=== PATIENT | male | born 1990 | race Caucasian/White ===

== ENCOUNTER 2018-10-20 06:28 | Emergency (ER) | payer BC, OTHER ==
--- NOTE | 2018-10-20 07:26 | EDM.PDOC ---
ED HPI GENERAL MEDICAL PROBLEM - General Chief Complaint: Genitourinary Problem Stated Complaint: KIDNEY STONE PAIN Time Seen by Provider: 10/20/18 06:57 Source of Information: Reports: Patient History Limitations: Reports: No Limitations - History of Present Illness INITIAL COMMENTS - FREE TEXT/NARRATIVE: The patient presents with right flank and right lower abdominal pain. This is an an ongoing problems since 2 weeks before . He had pain and hematuria. [facility] and [facility] gave him some antiinflammatories for treatment of a suspected kidney stone. He does have a history of kidney stones. He never got an US or a CT. He does not have the hematuria any more but just the pain. He has no fever, chills, nausea, vomiting, or diarrhea. This morning he had some pain down his right leg. He took some aspirin and that went away. He denies chest pain, shortness of breath or a cough. He has chronic back pain. Onset: Gradual Duration: Week(s): (Since 2 weeks before ) Location: Reports: Abdomen, Back Quality: Reports: Sharp Severity: Moderate Improves with: Reports: None Worsens with: Reports: None Associated Symptoms: Reports: No Other Symptoms Right Lower Abdominal Pain Score (Numeric/FACES): 8 - Related Data Allergies Allergy/AdvReac Type Severity Reaction Status Date / Time pravastatin Allergy Rash Verified 10/20/18 06:36 Home Meds: Home Meds Ibuprofen 200 mg PO DAILY PRN 01/26/14 [History] Meloxicam 15 mg PO DAILY PRN 10/20/18 [History] Past Medical History - Past Health History Medical/Surgical History: Denies Medical/Surgical History Genitourinary History: Reports: Renal Calculus Musculoskeletal History: Reports: Back Pain, Chronic Social & Family History - Tobacco Use Smoking Status *Q: Never Smoker - Recreational Drug Use Recreational Drug Use: No ED ROS GENERAL - Review of Systems Review Of Systems: See Below Constitutional: Reports: No Symptoms HEENT: Reports: No Symptoms Respiratory: Reports: No Symptoms Cardiovascular: Reports: No Symptoms Endocrine: Reports: No Symptoms GI/Abdominal: Reports: Abdominal Pain. Denies: Diarrhea, Nausea, Vomiting : Reports: Flank Pain (Right), Hematuria ED EXAM, RENAL/ - Physical Exam Exam: See Below Exam Limited By: No Limitations General Appearance: Alert, No Apparent Distress Ears: Normal External Exam Nose: Normal Inspection Head: Atraumatic, Normocephalic Neck: Normal Inspection Respiratory/Chest: No Respiratory Distress, Lungs Clear, Normal Breath Sounds Cardiovascular: Regular Rate, Rhythm, No Edema, No Murmur GI/Abdominal: Soft, No Organomegaly, No Mass, Tender (Mild tenderness to the right lower abdomen) Course - Vital Signs Last Recorded V/S: Last Vital Signs Temp 98 F 10/20/18 06:34 Pulse 95 10/20/18 06:34 Resp 16 10/20/18 06:34 BP 132/85 10/20/18 06:34 Pulse Ox 98 10/20/18 06:34 - Orders/Labs/Meds Labs: Laboratory Tests 10/20/18 10/20/18 10/20/18 Range/Units 06:45 07:18 07:18 WBC 8.83 (4.23-9.07) K/mm3 RBC 4.91 (4.63-6.08) M/mm3 Hgb 14.5 (13.7-17.5) gm/L Hct 42.4 (40.1-51.0) % MCV 86.4 (79.0-92.2) fl MCH 29.5 (25.7-32.2) pg MCHC 34.2 (32.2-35.5) g/dl RDW Std Deviation 40.2 (35.1-43.9) fL Plt Count 238 (163-337) K/mm3 MPV 10.0 (9.4-12.3) fl Neut % (Auto) 69.3 H (34.0-67.9) % Lymph % (Auto) 24.7 (21.8-53.1) % [place] % (Auto) 4.9 L (5.3-12.2) % Eos % (Auto) 0.6 L (0.8-7.0) Baso % (Auto) 0.2 (0.1-1.2) % Neut # (Auto) 6.12 H (1.78-5.38) K/mm3 Lymph # (Auto) 2.18 (1.32-3.57) K/mm3 [place] # (Auto) 0.43 (0.30-0.82) K/mm3 Eos # (Auto) 0.05 (0.04-0.54) K/mm3 Baso # (Auto) 0.02 (0.01-0.08) K/mm3 Sodium 139 (136-145) mEq/L Potassium 3.8 (3.5-5.1) mEq/L Chloride 105 (98-107) mEq/L Carbon Dioxide 26 (21-32) mEq/L Anion Gap 11.8 (5-15) BUN 15 (7-18) mg/dL Creatinine 1.1 (0.7-1.3) mg/dL Est Cr Clr Drug Dosing 95.00 mL/min Estimated GFR (MDRD) > 60 (>60) mL/min BUN/Creatinine Ratio 13.6 L (14-18) Glucose 92 (74-106) mg/dL Calcium 8.3 L (8.5-10.1) mg/dL Total Bilirubin 0.6 (0.2-1.0) mg/dL AST 15 (15-37) U/L ALT 26 (16-63) U/L Alkaline Phosphatase 58 (46-116) U/L Total Protein 6.9 (6.4-8.2) g/dl Albumin 3.6 (3.4-5.0) g/dl Globulin 3.3 gm/dL Albumin/Globulin Ratio 1.1 (1-2) Lipase 358 (73-393) U/L Urine Color Yellow (Yellow) Urine Appearance Clear (Clear) Urine pH 6.0 (5.0-8.0) Ur Specific [place] 1.020 (1.005-1.030) Urine Protein Negative (Negative) Urine Glucose (UA) Negative (Negative) Urine Ketones Negative (Negative) Urine Occult Blood Negative (Negative) Urine Nitrite Negative (Negative) Urine Bilirubin Negative (Negative) Urine Urobilinogen 0.2 (0.2-1.0) Ur Leukocyte Esterase Negative (Negative) Urine RBC 0-5 (0-5) /hpf Urine WBC 0-5 (0-5) /hpf Ur Epithelial Cells 0-5 (0-5) /hpf Urine Bacteria Few (FEW) /hpf Urine Mucus Few (FEW) /hpf - Re-Assessments/Exams Free Text/Narrative Re-Assessment/Exam: 10/20/18 07:47 I ordered labs, UA and a CT of his abdomen and pelvis without contrast. 10/20/18 08:16 His CBC and CMP look good. His UA shows no UTI and no blood. His CT shows no renal calculi, ureteral dilatation or ureteral stone is seen. Nothing acute is identified on noncontrast CT study of the abdomen and pelvis. He still has some pain but at this time I am not sure what is the cause. He has issues with his back and he is disabled from that. I will have him follow up with [facility]. Departure - Departure Time of Disposition: 08:18 Disposition: Home, Self-Care 01 Condition: Good Clinical Impression: Right low back pain Qualifiers: Chronicity: acute Sciatica presence: without sciatica Qualified Code(s): M54.5 - Low back pain Abdominal pain Qualifiers: Abdominal location: right lower quadrant Qualified Code(s): R10.31 - Right lower quadrant pain - Discharge Information *PRESCRIPTION DRUG MONITORING PROGRAM REVIEWED*: Not Applicable *COPY OF PRESCRIPTION DRUG MONITORING REPORT IN PATIENT CAROLE: Not Applicable Referrals: Cindy Meza MD [Primary Care Provider] - 1 Week Forms: ED Department Discharge Additional Instructions: Take tylenol or motrin for pain. Follow up with your doctor in 1 week. Please return if you are worse.
--- NOTE | 2018-10-20 07:57 | CT ---
CT abdomen and pelvis Technique: Multiple axial sections were obtained from the top of the liver inferiorly through the pubic symphysis. Intravenous and oral contrast was not utilized. Study has been performed as a ureteral stone protocol. Comparison: No prior abdominal imaging. Findings: Kidneys show no abnormal calcifications. No ureteral dilatation or ureteral stone is seen. Visualized lung bases shows slight linear scarring or discoid atelectasis within both lung bases. Noncontrast appearance of the liver appears within normal limits. Gallbladder contains no calcified gallstones. Spleen appears within normal limits. Adrenal glands show no nodule. Pancreas is within normal limits. Aorta shows no aneurysm. No retroperitoneal adenopathy or mesenteric abnormalities are seen. No pelvic mass or adenopathy is seen. No free fluid or inflammatory change is seen. No bowel dilatation is seen. Appendix is seen and appears to be normal in size. Bone window settings were reviewed which appears within normal limits. Very small fat-containing umbilical hernia is noted. Impression: 1. No renal calculi, ureteral dilatation or ureteral stone is seen. 2. Other incidental findings. Nothing acute is identified on noncontrast CT study of the abdomen and pelvis performed as a ureteral stone protocol. Diagnostic code #1
== END 2018-10-20 08:25 | disposition home or self-care (01) ==
LOC: JD.ED 06:28
DX: R10.31 Right lower quadrant pain (principal); M54.5 Low back pain; Z88.8 Allergy status to other drugs, medicaments and biological substances
CPT/HCPCS: 36415; 74176; 74176-26; 80053; 81001; 83690; 85025; 99282; 99284-25

== ENCOUNTER 2019-01-09 00:18 | Emergency (ER) | payer OTHER ==
[2019-01-09] MEDS ORDERED: Dicyclomine 10 MG Cap PO ONE (00:37)
[2019-01-09] MEDS ORDERED: Alum Hydrox/Mag Hydrox/Simeth 30 ML, Lidocaine 2% 15 ML PO ONE ×2 (00:38)
--- NOTE | 2019-01-09 00:39 | EDM.PDOC ---
ED HPI GENERAL MEDICAL PROBLEM - General Chief Complaint: Gastrointestinal Problem Stated Complaint: HEARTBURN/GAS/LEFT SIDE NECK PAIN Time Seen by Provider: 01/09/19 00:37 Source of Information: Reports: Patient History Limitations: Reports: No Limitations - History of Present Illness INITIAL COMMENTS - FREE TEXT/NARRATIVE: 28-year-old male presents the ED with diffuse central chest discomfort and persistent burping and belching. Patient by history has a strong history of GERD with occasional waking up in the night with brash water acid in his mouth. He states he's been burping and belching with pressure in his central chest for the best part of the last 2-3 hours. But he's been having extra gas and pressure in his chest for the last month. He did attend the [place] [facility] and they suggested Gas-X and suggest a stool culture and other tests be done. No vomiting. No recent soda pop usage. History suggests he likely has a hiatal hernia. Onset: Today, Unknown/Unsure (Symptoms for the last month.) Duration: Chronic, Getting Worse, Intermittent, Waxing/Waning Location: Reports: Chest (Epigastric central chest pain with persistent eructation.) Quality: Reports: Ache, Burning, Pressure (The only way he can get rid of the pressure is to burp.) Severity: Moderate Improves with: Reports: None Worsens with: Reports: None Context: Denies: Activity, Exercise, Lifting, Sick Contact, Trauma, Other Associated Symptoms: Reports: Chest Pain. 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: Other (see below) (Gas-X.) Left Neck Pain Score (Numeric/FACES): 4 - Related Data Allergies Allergy/AdvReac Type Severity Reaction Status Date / Time pravastatin Allergy Rash Verified 10/20/18 06:36 Home Meds: Home Meds Ibuprofen 200 mg PO DAILY PRN 01/26/14 [History] Meloxicam 15 mg PO DAILY PRN 10/20/18 [History] Dicyclomine [Bentyl] 20 mg PO Q6H PRN #10 tablet 01/09/19 [Rx] Past Medical History - Past Health History Medical/Surgical History: Denies Medical/Surgical History Gastrointestinal History: Reports: Gastritis, GERD, Other (See Below) (History suggest chronic hiatal hernia with occasional brash water acid reflux into his mouth and throat during the night.) Genitourinary History: Reports: Renal Calculus Musculoskeletal History: Reports: Back Pain, Chronic Social & Family History - Living Situation & Occupation Living situation: Reports: Occupation: Unemployed ED ROS GENERAL - Review of Systems Review Of Systems: See Below Constitutional: Reports: Decreased Appetite. Denies: Fever, Chills, Malaise, Weakness, Fatigue, Weight Loss HEENT: Reports: No Symptoms Respiratory: Reports: No Symptoms Cardiovascular: Reports: No Symptoms Endocrine: Reports: No Symptoms GI/Abdominal: Reports: Abdominal Pain (Epigastric pressure discomfort), Other ( Persistent problems with GERD and excessive burping and belching.) : Reports: No Symptoms Musculoskeletal: Reports: Back Pain Skin: Reports: No Symptoms Neurological: Reports: No Symptoms Psychiatric: Reports: No Symptoms Hematologic/Lymphatic: Reports: No Symptoms Immunologic: Reports: No Symptoms ED EXAM, GI/ABD - Physical Exam Exam: See Below Exam Limited By: No Limitations General Appearance: Alert, WD/WN, Moderate Distress (Persistent burping and belching to relieve venous pressure discomfort in his central chest and pressure in the left lateral aspect of his throat.) Eyes: Bilateral: Normal Appearance (No scleral icterus) Nose: Normal Inspection Throat/Mouth: Normal Inspection, Normal Lips, Normal Oropharynx Head: Atraumatic, Normocephalic Neck: Normal Inspection, Supple, Non-Tender, Full Range of Motion. No: Carotid Bruit, Lymphadenopathy (L), Lymphadenopathy (R) Respiratory/Chest: No Respiratory Distress, Lungs Clear, Normal Breath Sounds, No Accessory Muscle Use, Chest Non-Tender Cardiovascular: Normal Peripheral Pulses, Regular Rate, Rhythm, No Edema, No Gallop, No Murmur, No Rub GI/Abdominal Exam: Normal Bowel Sounds, Soft, No Organomegaly, No Distention, No Abnormal Bruit, No Mass, Pelvis Stable, Tender (Mild tenderness in the epigastrium only.), Other (Negative Delcid sign) (Male) Exam: No Hernia Back Exam: Normal Inspection, Full Range of Motion. No: CVA Tenderness (L), CVA Tenderness (R) Extremities: Normal Inspection, Normal Range of Motion, Non-Tender, No Pedal Edema Neurological: Alert, Oriented, CN II-XII Intact, Normal Cognition Psychiatric: Anxious Skin Exam: Warm, Dry, Intact, Normal Color, No Rash Course - Vital Signs Last Recorded V/S: Last Vital Signs Temp 36.0 C 01/09/19 00:28 Pulse 94 01/09/19 00:28 Resp 18 01/09/19 00:28 BP 128/87 01/09/19 00:28 Pulse Ox 98 01/09/19 00:28 - Orders/Labs/Meds Orders: Active Orders 24 hr Category Date Time Status Chest 2V [CR] Stat Exams 01/09/19 00:38 Taken Meds: Medications Discontinued Medications Generic Name Dose Route Start Last Admin Trade Name Freq PRN Reason Stop Dose Admin Al Hydroxide/Mg Hydroxide 30 0 ml 01/09/19 00:38 01/09/19 00:42 ml/ Lidocaine HCl 15 ml PO 01/09/19 00:39 45 ml ONETIME ONE Administration Dicyclomine HCl 20 mg 01/09/19 00:37 01/09/19 00:42 Bentyl PO 01/09/19 00:38 20 mg ONETIME ONE Administration - Radiology Interpretation Free Text/Narrative:: 28-year-old male presents the ED with central chest pressure discomfort and recurrent burping and belching to relieve the pressure. Pain radiates up to the left lateral aspect of his throat and neck. By history has a strong history of GERD and occasional brash water reflux into his mouth and throat during the night. This used to be more common when he was younger but still occurs intermittently. He does use Zantac when necessary and Prilosec when necessary. Today the pain worsened and his central chest and left lateral neck and he can' t get any relief from the constant need to burp and belch. Plan two-view chest x -ray to be done to see if I can identify a hiatal hernia. He did have a CT scan done within the last few months and I will look at this to see if I can identify a hiatal hernia as well. In the meantime I will give him a GI cocktail and Bentyl 20 mg by mouth. - Re-Assessments/Exams Free Text/Narrative Re-Assessment/Exam: 01/09/19 01;50: Patient feels much improved with no pressure discomfort now. The GI cocktail seemed to help the most. He will no longer feels any pain in his left lateral neck or the feeling of need to continue to burp or belch. Two- view chest x-ray was inconclusive in terms of identifying a hiatal hernia. The chest x-ray was otherwise normal. I did review CT scan I believe done in October of this year and it did show a small hiatal hernia. Patient advised that he should pursue investigations for hiatal hernia repair and at least an EGD. He is to take Prilosec 20 mg every day at bedtime. I will write him a prescription for Bentyl tablets to be taken 20 mg every 6 hours. For similar type discomfort. Departure - Departure Time of Disposition: 01:54 Disposition: Home, Self-Care 01 Condition: Fair Clinical Impression: Gastroesophageal reflux disease with hiatal hernia - Discharge Information *PRESCRIPTION DRUG MONITORING PROGRAM REVIEWED*: Not Applicable *COPY OF PRESCRIPTION DRUG MONITORING REPORT IN PATIENT CAROLE: Not Applicable Prescriptions: Dicyclomine [Bentyl] 20 mg PO Q6H PRN #10 tablet PRN Reason: Abdominal cramps/diarrhea Instructions: Gastroesophageal Reflux Disease, Adult, [id number], Laparoscopic Kimber Fundoplication Referrals: Cindy Meza MD [Primary Care Provider] - Forms: ED Department Discharge Additional Instructions: Evaluation in the emergency room tonight in regards to the development of epigastric pressure discomfort and upper chest pressure discomfort even up into the throat particularly on the left side. Unable to stop burping and or belching. By history you have a hiatal hernia with gastroesophageal reflux disease chronically. As you mentioned you have awoken in the night with brash water acid in your mouth but not for a period of time. The history suggests that your lower esophagus is inflamed from reflux probably during the night while you are sleeping. The history suggests that you have a hiatal hernia which means that the valve at the lower end of the food pipe and stomach juncture is open most of the time rather than being closed. This allows free acid and reflux up into the food pipe and sometimes up into the mouth and throat during the night. Hiatal hernia which means stomach herniates up into the chest stretches the opening where the food pipe travels through to the stomach and causes pain to radiate up into the neck and throat area which is what you've experienced tonight. A small hiatal hernia was visible on previous CT scan done for suspect kidney stones a short time ago. It is my suggestion that you take Prilosec 20 mg every night at bedtime. In the ED were treated with a GI cocktail which seemed to relieve your discomfort substantially and you were given a dose of Bentyl 20 mg by mouth as well. I will send you home with a prescription for Bentyl 20 mg tablet to be taken every 6 hours as needed for similar type pain. I would suggest strongly that you follow-up with a surgeon who specializes in fundoplication which means repair of reflux disorders and hiatal hernia repair. Her primary care physician could arrange this as are several surgeons in [place] who could perform this procedure. Suggest avoiding all soda pop in the future. Try not to eat or have much in your stomach for at least 3 hours before going to bed. All I'll also opens up the lower esophageal valve. So can medication such as Benadryl sleep aids etc. - My Orders Last 24 Hours: My Active Orders 01/09/19 00:38 Chest 2V [CR] Stat - Assessment/Plan Last 24 Hours: My Active Orders 01/09/19 00:38 Chest 2V [CR] Stat
--- NOTE | 2019-01-09 09:15 | CR ---
Chest: Two views of the chest were obtained. Comparison: Prior chest x-ray of 01/26/14. Heart size and mediastinum are within normal limits. Lungs are clear. Bony structures are unremarkable. Impression: 1. Nothing acute is appreciated on two-view chest x-ray. Diagnostic code #1
== END 2019-01-09 02:05 | disposition home or self-care (01) ==
LOC: JD.ED 00:18
DX: K21.9 Gastro-esophageal reflux disease without esophagitis (principal); K44.9 Diaphragmatic hernia without obstruction or gangrene
CPT/HCPCS: 71046; 99283; A9270; 99284

== ENCOUNTER 2019-04-22 05:22 | Emergency (ER) | payer OTHER ==
[2019-04-22] MEDS ORDERED: HYDROmorphone 0.5 MG/0.5 ML Syringe IVPUSH ONE (05:59)
[2019-04-22] MEDS ORDERED: Metoclopramide 10 MG/2 ML SDV IVPUSH ONE (05:59)
[2019-04-22] MEDS ORDERED: Hyoscyamine 0.125 MG Tab.SL SL ONE (05:59)
[2019-04-22] MEDS ORDERED: Sodium Chloride 0.9% 1,000 ML IV SCH (06:00)
--- NOTE | 2019-04-22 06:04 | EDM.PDOC ---
ED HPI GENERAL MEDICAL PROBLEM - General Chief Complaint: Abdominal Pain Stated Complaint: gall bladder Time Seen by Provider: 04/22/19 05:45 Source of Information: Reports: Patient History Limitations: Reports: No Limitations - History of Present Illness INITIAL COMMENTS - FREE TEXT/NARRATIVE: 29-year-old male attends the ED having awoken from sleep with pain in his epigastrium along the right costal margin her at least up underneath the right ribs radiating through to his back mostly between his shoulder blades perhaps more so on the left side than the right. He then is having brash water reflux and burping/belching to try and get relief of the discomfort. He had an ultrasound on his gallbladder yesterday at [facility] and was reported negative for stone disease. He suggest more of a hiatal hernia with free gastroesophageal reflux occurring often during the night. I had seen him about 3 weeks ago with pain referred up into his neck suggestive of esophageal spasm. He had a EGD performed in mid February which showed inflammation of the lower esophagus and he was started on Prilosec 20 mg daily. He also has found that if he takes Zantac 150 milligrams when he 7 problems it seems to work better and faster. The patient is spitting up saliva and dry heaving at the time my examination. Onset: Today Onset Date: 04/22/19 Onset Time: 04:30 Duration: Hour(s):, Constant, Waxing/Waning Location: Reports: Chest, Abdomen (Epigastrium and lower retrosternal chest.), Radiates to (A radiates through to his intrascapular area perhaps a little more to the left side than the right.) Quality: Reports: Ache, Other (Deep aching pressure pain. Relieved by burping and belching) Severity: Moderate (7 or 8 out of 10) Improves with: Reports: Other (Relieved by burping belching.) Worsens with: Reports: Other Context: Reports: Other (Spontaneous occurrence well asleep.). Denies: Activity (Worse when he lies down.), Exercise, Lifting, Sick Contact, Trauma Associated Symptoms: Reports: Chest Pain, Cough (Retrosternal chest pressure discomfort), Loss of Appetite, Malaise, Nausea/Vomiting (Dry heaving). Denies: Confusion, cough w sputum, Diaphoresis (Coughing at times as he is refluxing), Fever/Chills, Headaches, Rash, Seizure, Shortness of Breath, Syncope Treatments MMD [employer]: Reports: Other (see below) (None.) Right Upper Abdominal Pain Score (Numeric/FACES): 1 - Related Data Allergies Allergy/AdvReac Type Severity Reaction Status Date / Time pravastatin Allergy Rash Verified 10/20/18 06:36 Home Meds: Home Meds Ibuprofen 200 mg PO DAILY PRN 01/26/14 [History] Meloxicam 15 mg PO DAILY PRN 10/20/18 [History] Dicyclomine [Bentyl] 20 mg PO Q6H PRN #10 tablet 01/09/19 [Rx] Hyoscyamine Sulfate [Levsin-Sl] 0.125 mg SL ASDIRECTED PRN #10 tab.subl [Rx] Past Medical History - Past Health History Medical/Surgical History: Denies Medical/Surgical History Gastrointestinal History: Reports: Gastritis, GERD, Other (See Below) Genitourinary History: Reports: Renal Calculus Musculoskeletal History: Reports: Back Pain, Chronic Social & Family History - Family History Family Medical History: Noncontributory - Tobacco Use Smoking Status *Q: Never Smoker - Caffeine Use Caffeine Use: Reports: None - Recreational Drug Use Recreational Drug Use: No - Living Situation & Occupation Living situation: Reports: Occupation: Unemployed ED ROS GENERAL - Review of Systems Review Of Systems: See Below Constitutional: Reports: Decreased Appetite. Denies: Fever, Chills, Malaise, Weakness, Fatigue, Weight Loss HEENT: Reports: No Symptoms Respiratory: Reports: No Symptoms Cardiovascular: Reports: No Symptoms Endocrine: Reports: No Symptoms GI/Abdominal: Reports: Abdominal Pain (Epigastric and along the right costal margin.), Decreased Appetite, Other (Constant feeling of need to burp and belch. ) : Reports: No Symptoms Musculoskeletal: Reports: No Symptoms Skin: Reports: No Symptoms Neurological: Reports: No Symptoms Psychiatric: Reports: No Symptoms Hematologic/Lymphatic: Reports: No Symptoms Immunologic: Reports: No Symptoms ED EXAM, GI/ABD - Physical Exam Exam: See Below Exam Limited By: No Limitations General Appearance: Alert, Moderate Distress (Dry heaving burping and belching try to get relief of the epigastric right upper quadrant dull pain.) Eyes: Bilateral: Normal Appearance (No scleral icterus.) Throat/Mouth: Normal Inspection, Normal Lips, Normal Oropharynx Head: Atraumatic, Normocephalic Neck: Normal Inspection, Supple, Non-Tender, Full Range of Motion. No: Lymphadenopathy (L), Lymphadenopathy (R) Respiratory/Chest: Lungs Clear, Normal Breath Sounds, No Accessory Muscle Use, Respiratory Distress (Mild tachypnea.) Cardiovascular: Normal Peripheral Pulses, Regular Rate, Rhythm, No Edema, No Gallop, No Murmur, No Rub GI/Abdominal Exam: Normal Bowel Sounds, Soft, Non-Tender, No Organomegaly, No Abnormal Bruit, No Mass, Pelvis Stable, Other (Negative Delcid sign) (Male) Exam: No Hernia Back Exam: Normal Inspection, Full Range of Motion. No: CVA Tenderness (L), CVA Tenderness (R) Extremities: Normal Inspection, Normal Range of Motion, Non-Tender, No Pedal Edema Neurological: Alert, Oriented, CN II-XII Intact, Normal Cognition Psychiatric: Normal Affect, Anxious Skin Exam: Warm, Dry, Intact, Normal Color, No Rash Course - Vital Signs Last Recorded V/S: Last Vital Signs Temp 36.1 C 04/22/19 05:42 Pulse 89 04/22/19 05:42 Resp 16 04/22/19 05:42 BP 127/98 H 04/22/19 05:42 Pulse Ox 98 04/22/19 05:42 - Orders/Labs/Meds Orders: Active Orders 24 hr Category Date Time Status Abdomen wo Cont [CT] Stat Exams 04/22/19 06:00 Taken Sodium Chloride 0.9% [Normal Saline] 1,000 ml Med 04/22/19 06:00 Active IV ASDIRECTED Medication Orders Sodium Chloride (Normal Saline) 1,000 mls @ 150 mls/hr IV ASDIRECTED JOSE Last Admin: 04/22/19 06:13 Dose: 150 mls/hr Labs: Laboratory Tests 04/22/19 04/22/19 Range/Units 06:04 06:04 WBC 8.72 (4.23-9.07) K/mm3 RBC 5.42 (4.63-6.08) M/mm3 Hgb 16.0 D (13.7-17.5) gm/L Hct 46.4 (40.1-51.0) % MCV 85.6 (79.0-92.2) fl MCH 29.5 (25.7-32.2) pg MCHC 34.5 (32.2-35.5) g/dl RDW Std Deviation 40.7 (35.1-43.9) fL Plt Count 265 (163-337) K/mm3 MPV 10.0 (9.4-12.3) fl Neut % (Auto) 57.0 (34.0-67.9) % Lymph % (Auto) 35.8 (21.8-53.1) % Milam % (Auto) 5.7 (5.3-12.2) % Eos % (Auto) 1.0 (0.8-7.0) Baso % (Auto) 0.2 (0.1-1.2) % Neut # (Auto) 4.96 (1.78-5.38) K/mm3 Lymph # (Auto) 3.12 (1.32-3.57) K/mm3 Milam # (Auto) 0.50 (0.30-0.82) K/mm3 Eos # (Auto) 0.09 (0.04-0.54) K/mm3 Baso # (Auto) 0.02 (0.01-0.08) K/mm3 Sodium 139 (136-145) mEq/L Potassium 3.9 (3.5-5.1) mEq/L Chloride 104 (98-107) mEq/L Carbon Dioxide 25 (21-32) mEq/L Anion Gap 13.9 (5-15) BUN 15 (7-18) mg/dL Creatinine 1.1 (0.7-1.3) mg/dL Est Cr Clr Drug Dosing 94.14 mL/min Estimated GFR (MDRD) > 60 (>60) mL/min BUN/Creatinine Ratio 13.6 L (14-18) Glucose 90 (74-106) mg/dL Calcium 8.3 L (8.5-10.1) mg/dL Total Bilirubin 0.4 (0.2-1.0) mg/dL AST 17 (15-37) U/L ALT 34 (16-63) U/L Alkaline Phosphatase 62 (46-116) U/L Total Protein 7.5 (6.4-8.2) g/dl Albumin 4.0 (3.4-5.0) g/dl Globulin 3.5 gm/dL Albumin/Globulin Ratio 1.1 (1-2) Lipase 187 (73-393) U/L Meds: Medications Generic Name Dose Route Start Last Admin Trade Name Barby PRN Reason Stop Dose Admin Sodium Chloride 1,000 mls @ 150 mls/hr 04/22/19 06:00 04/22/19 06:13 Normal Saline IV 150 mls/hr ASDIRECTED JOSE Administration Discontinued Medications Generic Name Dose Route Start Last Admin Trade Name Callumq PRN Reason Stop Dose Admin Hydromorphone HCl 0.5 mg 04/22/19 05:59 04/22/19 06:12 Dilaudid IVPUSH 04/22/19 06:00 0.5 mg ONETIME ONE Administration Hyoscyamine 0.125 mg 04/22/19 05:59 04/22/19 06:13 Hyomax-Sl SL 04/22/19 06:00 0.125 mg ONETIME ONE Administration Metoclopramide HCl 10 mg 04/22/19 05:59 04/22/19 06:13 Reglan IVPUSH 04/22/19 06:00 10 mg ONETIME ONE Administration - Radiology Interpretation Free Text/Narrative:: 29-year-old male presents the ED with pain in the epigastrium and along his right costal margin anteriorly that awoke him from sleep about 0435 hrs. this morning. Associated gastroesophageal reflux with a feeling of need to constantly burp and belch to give himself some relief. He is now dry heaving and mostly saliva and slight bilious material coming up. He had an ultrasound of his gallbladder yesterday in [facility] and apparently was reported as normal. He had an EGD done in mid February which showed inflammation of the lower food pipe compatible with some mild esophagitis. Suggest to me that he likely has a sliding hiatal hernia that is causing mechanical problems with free reflux during the night. Plan left second 0.125 mg sublingual. IV normal saline at 150 mils per hour will give him Reglan 10 mg IV and Dilaudid 0.5 mg IV for pain relief. After this we'll try and seeping keep down a bottle of oral contrast that we can CT his abdomen and look for a hiatal hernia. Labs were done to include a serum lipase. - Re-Assessments/Exams Free Text/Narrative Re-Assessment/Exam: 04/22/19 06:59 Labs reveal a normal white count at 8.72 with auto differential of 57% neutrophils. Hemoglobin is 16.0 with hematocrit of 46.4 suggesting mild hemoconcentration down 265,000. Sodium was 139 with a potassium of 3.9. Chloride is 104 the bicarbonate 25. Anion gap is 13.9. The UA and is 15. Creatinine is 1.1. EGFR is greater than 60. Glucose is 90. Calcium is 8.3. Liver function is normal. Total protein is 7.5 albumin fraction 4.0. Lipase is 187. CT the abdomen has been the distal esophagus. Stomach otherwise appears to be normal. Gallbladder is normal with no calcified stones. Liver is normal. Pancreas appears normal spleen appears normal adrenal glands and kidneys are normal in appearance. Patient did get relief with medication with a large burp belch just prior to taking in the oral contrast. I strongly suspect this reduced his hiatal hernia and he is now pain-free and feels perfectly normal. I am therefore going to advise him to follow-up with his primary care physician to get a referral to Dr. Bimal Jones --surgeon at [facility] in [place] to discuss possibility of a fundoplication to fix this problem. I will send the patient home with a prescription of Levsin 0.125 mg to be taken for similar type pain 1 tablet and then repeat in 10 minutes. He already has dicyclomine tablets with him. Departure - Departure Time of Disposition: 07:00 Disposition: Home, Self-Care 01 Condition: Fair Clinical Impression: Hiatal hernia with gastroesophageal reflux Abdominal pain Qualifiers: Abdominal location: right lower quadrant Qualified Code(s): R10.31 - Right lower quadrant pain - Discharge Information *PRESCRIPTION DRUG MONITORING PROGRAM REVIEWED*: Not Applicable *COPY OF PRESCRIPTION DRUG MONITORING REPORT IN PATIENT CAROLE: Not Applicable Prescriptions: Hyoscyamine Sulfate [Levsin-Sl] 0.125 mg SL ASDIRECTED PRN #10 tab.subl PRN Reason: hiatal hernia. Instructions: Hiatal Hernia Referrals: PCP,Not In Area [Primary Care Provider] - Forms: ED Department Discharge Additional Instructions: Evaluation the emergency room this morning in regards to awakening from sleep with severe epigastric pain radiate through tear back slightly to the left side and also along the costal margin along the right side. Workup for gallbladder disease has been negative. You had associated nausea and recurrent feeling of needing to burp or belch to relieve the discomfort. These are all signs and symptoms of a hiatal hernia. This means part of your stomach slides up through the opening on the diaphragm up into the chest one you are sleeping. You had pretty well complete pain relief prior to having a upper abdominal CT carried out. The CT does reveal a small to moderate-sized hiatal hernia. No contrast was evident within the hernia however. The contrast may have reduced the hernia or may have reduced itself with medication at any rate if you develop similar symptoms suggest trying Levsin under the tongue one tablet immediately and repeated 10 minutes for relief of pain. May also take Bentyl 20 mg by mouth same time. If you don't get relief of the pain with this treatment then you need to come back to the ED. In the meantime I would suggest placing a 2 x 4 or 2 underneath the head of your bed to slightly elevate the bed as this will help keep the stomach in the abdomen at nighttime. Must go to bed with nothing to eat or drink for 3 hours before retiring for the night. Suggest taking Gaviscon other pill form or 25 mils of the liquid at bedtime as this floats on any stomach contacted if reflux occurs it will be the Gaviscon first which is nonirritating to the food pipe. However overall I suspect you would benefit from a surgical procedure called fundoplication. Suggest having her primary care physician refer you to Dr. Bimal Jones a surgeon at [facility] who performs this surgery. All lab work done in the ED today was also normal showing no problems with your liver gallbladder or pancreas. Of note there is increased stool in the right hemicolon and transverse colon on the CT. We will contrast you drink will usually get her bowels working once or twice today. - My Orders Last 24 Hours: My Active Orders 04/22/19 06:00 Abdomen wo Cont [CT] Stat Sodium Chloride 0.9% [Normal Saline] 1,000 ml IV ASDIRECTED - Assessment/Plan Last 24 Hours: My Active Orders 04/22/19 06:00 Abdomen wo Cont [CT] Stat Sodium Chloride 0.9% [Normal Saline] 1,000 ml IV ASDIRECTED
--- NOTE | 2019-04-22 08:46 | CT ---
CT abdomen Technique: Multiple axial sections were obtained from above the dome of the diaphragm inferiorly to the mid pelvis. Oral contrast is seen. No IV contrast is noted. Comparison: Prior noncontrast CT study of 10/20/18. Findings: Visualized portion of both lung bases show nothing acute. Liver and spleen have an unremarkable noncontrast CT appearance. Adrenal glands show no nodule. Pancreas is within normal limits. Gallbladder contains no calcified gallstones. Kidneys show no abnormal calcifications or hydronephrosis. Aorta shows no aneurysm. No retroperitoneal adenopathy or mesenteric abnormalities are seen. Appendix not visualized with certainty. No bowel dilatation is seen. No free fluid or inflammatory change is seen. Bone window settings were reviewed which shows no acute osseous abnormality. Impression: 1. Nothing acute is appreciated on noncontrast CT study of the abdomen. Diagnostic code #1 MTDD
== END 2019-04-22 07:20 | disposition home or self-care (01) ==
LOC: JD.ED 05:22
DX: K44.9 Diaphragmatic hernia without obstruction or gangrene (principal); K21.9 Gastro-esophageal reflux disease without esophagitis; Z88.8 Allergy status to other drugs, medicaments and biological substances; Z79.899 Other long term (current) drug therapy
CPT/HCPCS: 36415; 74150; 80053; 83690; 85025; 96361; 96374; 96375; 99284; A9270; J1170; J2765; J7040

== ENCOUNTER 2019-04-29 22:43 | Emergency (ER) | payer OTHER ==
--- NOTE | 2019-04-29 23:10 | EDM.PDOC ---
ED HPI GENERAL MEDICAL PROBLEM - General Chief Complaint: Abdominal Pain Stated Complaint: abdominal pain Time Seen by Provider: 04/29/19 23:10 Source of Information: Reports: Patient History Limitations: Reports: No Limitations - History of Present Illness INITIAL COMMENTS - FREE TEXT/NARRATIVE: 29-year-old male presents to the ED with severe retrosternal chest pain which is felt up into his mid retrosternal chest pain Associated feeling of need to constantly burp/belch to relieve the discomfort. Pain will radiate up into the right side of his neck at times.. May pain is right upper quadrant and epigastrium. This is occurred many times in the past particularly the last several weeks. I did see him a week ago with similar complaints and clinically has a hiatal hernia. He's had a recent ultrasound of his gallbladder which was negative for any stone disease. Early has associated dry heaves and has vomited 3 times of food content and bilious material without blood. He is working through the [facility] to try and arrange further studies by way of upper GI endoscopy and by history alone he requires a fundoplication. He was told that he likely needs a HIDA scan to confirm that he does not have any gallbladder disorder. It is in the epigastrium and radiates upward towards his neck and also is felt in his mid back. He states it started spontaneously with very little to eat for supper tonight. Onset: Sudden Onset Date: 04/29/19 Onset Time: 20:30 Duration: Hour(s): Location: Reports: Chest (Central retrosternal sternal chest and epigastric right upper quadrant of the abdomen.), Abdomen Quality: Reports: Ache, Burning, Sharp, Stabbing, Other Severity: Severe (Strong spastic component to the pain compatible with esophagitis.) Improves with: Reports: None ( 8-9 out of 10), Other (Transient relief with burping and belching. Vomiting also seems to relieve the discomfort.) Worsens with: Reports: Other Context: Denies: Activity (Bending over seem to help precipitate acute vomiting. ), Exercise, Lifting, Sick Contact, Trauma Associated Symptoms: Reports: Loss of Appetite, Nausea/Vomiting. 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) Is currently on omeprazole and he finished all of the Levsin tablets that I gave him the did provide him with transient relief overRight Upper Abdomen Pain Score (Numeric/FACES): 2 - Related Data Allergies Allergy/AdvReac Type Severity Reaction Status Date / Time pravastatin Allergy Rash Verified 04/29/19 22:53 Home Meds: Home Meds Ibuprofen 200 mg PO DAILY PRN 01/26/14 [History] Dicyclomine [Bentyl] 20 mg PO Q6H PRN #10 tablet 01/09/19 [Rx] Hyoscyamine Sulfate [Levsin-Sl] 0.125 mg SL ASDIRECTED PRN #10 tab.subl [Rx] Dicyclomine [Bentyl] 20 mg PO Q6H PRN #10 tablet 04/30/19 [Rx] Hyoscyamine Sulfate [Levsin-Sl] 0.125 mg SL ASDIRECTED #20 tab.subl 04/30/19 [Rx ] Past Medical History - Past Health History Medical/Surgical History: Denies Medical/Surgical History HEENT History: Reports: None Cardiovascular History: Reports: None Respiratory History: Reports: None Gastrointestinal History: Reports: Gastritis, GERD, Other (See Below) Genitourinary History: Reports: Renal Calculus Musculoskeletal History: Reports: Back Pain, Chronic Neurological History: Reports: None Psychiatric History: Reports: None Endocrine/Metabolic History: Reports: Obesity/BMI 30+ Hematologic History: Reports: None Immunologic History: Reports: None Oncologic (Cancer) History: Reports: None Dermatologic History: Reports: None - Infectious Disease History Infectious Disease History: Reports: None - Past Surgical History Head Surgeries/Procedures: Reports: None GI Surgical History: Reports: Hernia Repair/Other Social & Family History - Family History Family Medical History: Noncontributory - Tobacco Use Smoking Status *Q: Never Smoker - Caffeine Use Caffeine Use: Reports: None - Recreational Drug Use Recreational Drug Use: No - Living Situation & Occupation Living situation: Reports: Occupation: Unemployed ED ROS GENERAL - Review of Systems Review Of Systems: See Below Constitutional: Reports: Malaise, Weakness, Fatigue, Decreased Appetite. Denies : Fever, Chills HEENT: Reports: No Symptoms Respiratory: Denies: Shortness of Breath, Wheezing, Pleuritic Chest Pain, Cough , Sputum, Hemoptysis Cardiovascular: Reports: Chest Pain, Other. 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 Denies: Constipation, Diarrhea, Difficulty Swallowing, Distension, Flatus, Hematemesis, Hematochezia, Melena, Mucous in Stool : Reports: No Symptoms Musculoskeletal: Reports: No Symptoms Skin: Reports: No Symptoms Neurological: Reports: No Symptoms Psychiatric: Reports: No Symptoms Hematologic/Lymphatic: Reports: No Symptoms Immunologic: Reports: No Symptoms ED EXAM, GI/ABD - Physical Exam Exam: See Below Exam Limited By: No Limitations General Appearance: Alert, WD/WN, Moderate Distress, Other (Vital signs show temperature 36.1. Pulse of 92 respiratory of 16 O2 sats 96% on room air BP 1 6178 INR elevated.) Eyes: Bilateral: Normal Appearance (No scleral icterus.) Throat/Mouth: Normal Inspection, Normal Lips, Normal Teeth, Normal Oropharynx Head: Atraumatic, Normocephalic Neck: Normal Inspection, Supple, Non-Tender, Full Range of Motion. No: Carotid Bruit, Lymphadenopathy (L), Lymphadenopathy (R) Respiratory/Chest: No Respiratory Distress, Lungs Clear, Normal Breath Sounds, No Accessory Muscle Use, Chest Non-Tender Cardiovascular: Normal Peripheral Pulses, Regular Rate, Rhythm, No Edema, No Gallop, No Murmur GI/Abdominal Exam: No Abnormal Bruit, No Mass, Pelvis Stable, Tender ( Tenderness to percussion), Abnormal Bowel Sounds, Other (Negative Delcid sign.) (Male) Exam: No Hernia Back Exam: Normal Inspection, Full Range of Motion. No: CVA Tenderness (L), CVA Tenderness (R) Extremities: Normal Inspection, Normal Range of Motion, Non-Tender Neurological: Alert, Oriented, CN II-XII Intact, Normal Cognition, Normal Gait Psychiatric: Anxious Skin Exam: Warm, Dry, Intact, Normal Color, No Rash Course - Vital Signs Last Recorded V/S: Last Vital Signs Temp 36.1 C 04/29/19 22:50 Pulse 92 09/11/19 22:50 Resp 16 04/29/19 22:50 BP 161/78 H 04/29/19 22:50 Pulse Ox 96 04/29/19 22:50 - Orders/Labs/Meds Orders: Active Orders 24 hr Category Date Time Status Chest 2V [CR] Stat Exams 04/30/19 01:05 Taken Meds: Medications Discontinued Medications Generic Name Dose Route Start Last Admin Trade Name Callumq PRN Reason Stop Dose Admin Hydromorphone HCl 1 mg 04/30/19 00:37 04/30/19 00:50 Dilaudid IVPUSH 04/30/19 00:38 1 mg ONETIME ONE Administration Hyoscyamine 0.125 mg 04/30/19 00:37 Hyomax-Sl SL 04/30/19 00:38 ONETIME ONE Hyoscyamine 0.125 mg 04/30/19 00:38 04/30/19 00:49 Hyomax-Sl SL 04/30/19 00:39 0.125 mg ONETIME ONE Administration Hyoscyamine 0.125 mg 04/30/19 00:48 04/30/19 01:00 Hyomax-Sl SL 04/30/19 00:49 0.125 mg ONETIME ONE Administration Sodium Chloride 1,000 mls @ 500 mls/hr 04/30/19 00:45 04/30/19 00:49 Normal Saline IV 500 mls/hr ASDIRECTED JOSE Administration Metoclopramide HCl 10 mg 04/30/19 00:37 04/30/19 00:49 Reglan IVPUSH 04/30/19 00:38 10 mg ONETIME ONE Administration Oxycodone/Acetaminophen 2 tab 04/30/19 02:20 04/30/19 02:34 Percocet 325-5 Mg PO 04/30/19 02:21 2 tab ONETIME ONE Administration - Radiology Interpretation Free Text/Narrative:: 29-year-old male presents to the ED with recurrent symptoms of epigastric right upper quadrant abdominal pain that radiates up into the his retrosternal area. Associated constant feeling of need to burp or belch to prevent get some relief of the discomfort. This is precipitated nausea and vomiting 3 tonight at supper came up which was only a light sandwich. Pain is constant and worse if he lies down. Pain will intermittently radiate up into the left or right side of his throat and neck. Radiates through to his mid back between the shoulder blades at times as well. History is with hiatal hernia with free gastroesophageal reflux. He's been placed on omeprazole 20 mg daily and I did give him some Levsin 0.12 febrile 5 mg tablets to be taken at onset of similar type symptoms which has worked well over the last week but it only gave him 6 tablets and these used them all. He had used all of his Bentyl 20 mg tablets. Two-view chest x-ray to be done to see if I can identify hiatal hernia. No labs at this time as they were all normal last occasion. I will give him IV Dilaudid 1 mg and Reglan 10 mg IV for acute pain and nausea relief. Also given Levsin 0.125 mg now and repeat in 10 minutes time. To 10 mg by mouth as well. - Re-Assessments/Exams Free Text/Narrative Re-Assessment/Exam: 04/30/19 01:42 Lateral chest x-ray confirms clinical suspicion of hiatal hernia. There is an air-filled sac measuring 4 cm x 3 cm retro cardiac area. Compatible with a hiatal hernia. 04/30/19 02:35 he feels markedly improved after the IV medication. I will discharge him with 20 tablets of the Levsin that he can use 1 every 5 minutes until he gets marked improvement of symptoms and then take Bentyl 20 mg tablet as well. He needs to get into the [facility] clinic to have them determine when he needs to do digit jumped through the loops in hopes to get to see director of family service center or surgeon who can perform a fundoplication procedure. He believes he is supposed to have a HIDA scan performed first to make Sure There Is No biliary tree problems. He was advised that he can take any of his Levsin or Bentyl for good 12 hours before the test is to be arranged as it will create a false positive test. Patient is asked that we send the results of today's evaluation to the [facility] clinic. Departure - Departure Time of Disposition: 02:18 Disposition: Home, Self-Care 01 Condition: Fair Clinical Impression: Non-cardiac chest pain, Hiatal hernia, Esophagitis - Discharge Information *PRESCRIPTION DRUG MONITORING PROGRAM REVIEWED*: Not Applicable *COPY OF PRESCRIPTION DRUG MONITORING REPORT IN PATIENT CAROLE: Not Applicable Prescriptions: Dicyclomine [Bentyl] 20 mg PO Q6H PRN #10 tablet PRN Reason: Abdominal cramps/diarrhea Hyoscyamine Sulfate [Levsin-Sl] 0.125 mg SL ASDIRECTED #20 tab.subl Instructions: Esophagitis, Hiatal Hernia, Nonspecific Chest Pain, [id number] Referrals: PCP,Not In Area [Ordering Only Provider] - Forms: ED Department Discharge Additional Instructions: Evaluation the emergency room once again due to retrosternal chest pain associated with a lot of burping and belching dry heaving and vomiting. Associated pain. Of the stomach rating up towards the neck. This history is compatible with esophagitis or esophageal spasm and hiatal hernia. Chest x-ray does reveal a small hiatal hernia with a pouch of air behind her heart measuring 4 cm x 3 cm. You're treated in the ED today with intravenous Dilaudid 1 mg with Reglan 10 mg to relieve nausea and pain. 2 Percocets were given by mouth before you left the department to further alleviate pain overnight. Is written for Levsin 0.125 mg tablets one tablet every 5 minutes 3 if needed for relief of pain and then take Bentyl 20 mg tablet as well at onset of pain to try and relieve hiatal hernia discomfort. As discussed [facility] You are supposedly going to be scheduled for a HIDA scan to completely rule out any gallbladder disease before referral to a director of family service center versus surgeon who performs fundoplication which would provide complete relief of recurrent bouts of severe chest pain. - My Orders Last 24 Hours: My Active Orders 04/30/19 01:05 Chest 2V [CR] Stat - Assessment/Plan Last 24 Hours: My Active Orders 04/30/19 01:05 Chest 2V [CR] Stat
[2019-04-30] MEDS ORDERED: Metoclopramide 10 MG/2 ML SDV IVPUSH ONE (00:37)
[2019-04-30] MEDS ORDERED: HYDROmorphone 1 MG/ML Syringe IVPUSH ONE (00:37)
[2019-04-30] MEDS ORDERED: Hyoscyamine 0.125 MG Tab.SL SL ONE ×3 (00:37→00:48)
[2019-04-30] MEDS ORDERED: Sodium Chloride 0.9% 1,000 ML IV SCH (00:45)
[2019-04-30] MEDS ORDERED: Acetaminophen/oxyCODONE 325-5 MG Tab PO ONE (02:20)
--- NOTE | 2019-05-04 07:59 | CR ---
Chest: Two views of the chest were obtained. Comparison: Prior chest x-ray of 01/09/19. Heart size and mediastinum are normal. Lungs show no acute parenchymal change. Bony structures are within normal limits for the patient's age. Impression: 1. Nothing acute is appreciated on two-view chest x-ray. Diagnostic code #1
== END 2019-04-30 02:39 | disposition home or self-care (01) ==
LOC: JD.ED 22:43
DX: K44.9 Diaphragmatic hernia without obstruction or gangrene (principal); K20.9 Esophagitis, unspecified; E66.9 Obesity, unspecified; Z68.31 Body mass index [BMI] 31.0-31.9, adult; Z88.8 Allergy status to other drugs, medicaments and biological substances
CPT/HCPCS: 71046; 96361; 96374; 96375; 99284; A9270; J1170; J2765; J7040

== ENCOUNTER 2019-08-22 22:43 | Emergency (ER) | payer OTHER ==
--- NOTE | 2019-08-22 23:23 | EDM.PDOC ---
ED HPI GENERAL MEDICAL PROBLEM - General Chief Complaint: Gastrointestinal Problem Stated Complaint: HEARTBURN PAIN Time Seen by Provider: 08/22/19 23:22 - History of Present Illness INITIAL COMMENTS - FREE TEXT/NARRATIVE: 29-year-old male presents the emergency room with heartburn pain This is been especially bad today as the patient took 2 aspirin this morning. However this is been an ongoing problem. He has had a Levsin in the past and he believes this helps but the [facility] told him it was probably a [facility] effect. He is on omeprazole 20 mg a day this does help but they tried to cut it back to every other day. [facility] is [facility] all sorts of stuff before he gets to see a shower maid. The patient has had some lower chest burning sensation but is worried about cardiac problems as he had a grandfather who had an NV in his 30s. The patient has not really had any vomiting but he has a stuff that sneaks up the back of the throat that he spits up it he is not had any black or tarry stools. Epigastric Pain Score (Numeric/FACES): 3 - Related Data Allergies Allergy/AdvReac Type Severity Reaction Status Date / Time pravastatin Allergy Rash Verified 08/22/19 22:52 Home Meds: Home Meds Ibuprofen 200 mg PO DAILY PRN 01/26/14 [History] Dicyclomine [Bentyl] 20 mg PO Q6H PRN #10 tablet 01/09/19 [Rx] Hyoscyamine Sulfate [Levsin-Sl] 0.125 mg SL ASDIRECTED PRN #10 tab.subl [Rx] Dicyclomine [Bentyl] 20 mg PO Q6H PRN #10 tablet 04/30/19 [Rx] Hyoscyamine Sulfate [Levsin-Sl] 0.125 mg SL ASDIRECTED #20 tab.subl 04/30/19 [Rx ] Sucralfate [Carafate] 1 gm PO ASDIRECTED #90 tablet 08/23/19 [Rx] Past Medical History - Past Health History Medical/Surgical History: Denies Medical/Surgical History HEENT History: Reports: None Cardiovascular History: Reports: None Respiratory History: Reports: None Gastrointestinal History: Reports: Gastritis, GERD, Other (See Below) Other Gastrointestinal History: hiatal hernia Genitourinary History: Reports: Renal Calculus Musculoskeletal History: Reports: Back Pain, Chronic Neurological History: Reports: None Psychiatric History: Reports: None Endocrine/Metabolic History: Reports: Obesity/BMI 30+ Hematologic History: Reports: None Immunologic History: Reports: None Oncologic (Cancer) History: Reports: None Dermatologic History: Reports: None - Infectious Disease History Infectious Disease History: Reports: None - Past Surgical History Head Surgeries/Procedures: Reports: None GI Surgical History: Reports: Hernia Repair/Other Social & Family History - Family History Family Medical History: Noncontributory - Tobacco Use Smoking Status *Q: Never Smoker Second Hand Smoke Exposure: No - Caffeine Use Caffeine Use: Reports: None - Recreational Drug Use Recreational Drug Use: No - Living Situation & Occupation Living situation: Reports: Occupation: Unemployed ED ROS GENERAL - Review of Systems Review Of Systems: See Below Constitutional: Reports: No Symptoms HEENT: Reports: No Symptoms Respiratory: Reports: No Symptoms Cardiovascular: Reports: Other (The HPI) GI/Abdominal: Reports: Other (See HPI) : Reports: No Symptoms Musculoskeletal: Reports: No Symptoms ED EXAM, GI/ABD - Physical Exam Exam: See Below Exam Limited By: No Limitations General Appearance: Alert, No Apparent Distress Head: Atraumatic, Normocephalic Neck: Normal Inspection, Supple, Non-Tender, Full Range of Motion. No: Lymphadenopathy (L), Lymphadenopathy (R) Respiratory/Chest: No Respiratory Distress, Lungs Clear, Normal Breath Sounds Cardiovascular: Regular Rate, Rhythm, No Edema, No Murmur GI/Abdominal Exam: Normal Bowel Sounds, Soft, Other (Some epigastric tenderness that is consistent with the discomfort he has been having) Extremities: Normal Inspection Neurological: Alert, Oriented, Normal Cognition Psychiatric: Normal Affect, Normal Mood Course - Vital Signs Last Recorded V/S: Last Vital Signs Temp 36.1 C 08/22/19 22:49 Pulse 94 08/22/19 22:49 Resp 16 08/22/19 22:49 BP 143/94 H 08/22/19 22:49 Pulse Ox 99 08/22/19 22:49 - Orders/Labs/Meds Orders: Active Orders 24 hr Category Date Time Status EKG Documentation Completion [RC] STAT Care 08/22/19 23:45 Active Labs: Laboratory Tests 08/22/19 08/22/19 Range/Units 23:57 23:57 WBC 9.72 H (4.23-9.07) K/mm3 RBC 5.20 (4.63-6.08) M/mm3 Hgb 15.4 (13.7-17.5) gm/dl Hct 44.4 (40.1-51.0) % MCV 85.4 (79.0-92.2) fl MCH 29.6 (25.7-32.2) pg MCHC 34.7 (32.2-35.5) g/dl RDW Std Deviation 41.1 (35.1-43.9) fL Plt Count 245 (163-337) K/mm3 MPV 9.7 (9.4-12.3) fl Neutrophils % (Manual) 62 H (40-60) % Band Neutrophils % 0 (0-10) % Lymphocytes % (Manual) 30 (20-40) % Atypical Lymphs % 0 % Monocytes % (Manual) 6 (2-10) % Eosinophils % (Manual) 1 (0.8-7.0) % Basophils % (Manual) 1 (0.2-1.2) Platelet Estimate Adequate RBC Morph Comment Normal Sodium 140 (136-145) mEq/L Potassium 3.6 (3.5-5.1) mEq/L Chloride 105 (98-107) mEq/L Carbon Dioxide 26 (21-32) mEq/L Anion Gap 12.6 (5-15) BUN 17 (7-18) mg/dL Creatinine 1.0 (0.7-1.3) mg/dL Est Cr Clr Drug Dosing 103.55 mL/min Estimated GFR (MDRD) > 60 (>60) mL/min BUN/Creatinine Ratio 17.0 (14-18) Glucose 96 (74-106) mg/dL Calcium 8.3 L (8.5-10.1) mg/dL Total Bilirubin 0.3 (0.2-1.0) mg/dL AST 15 (15-37) U/L ALT 42 (16-63) U/L Alkaline Phosphatase 61 (46-116) U/L Troponin I < 0.017 (0.00-0.056) ng/mL Total Protein 7.2 (6.4-8.2) g/dl Albumin 3.8 (3.4-5.0) g/dl Globulin 3.4 gm/dL Albumin/Globulin Ratio 1.1 (1-2) Lipase 171 (73-393) U/L Meds: Medications Discontinued Medications Generic Name Dose Route Start Last Admin Trade Name Barby PRN Reason Stop Dose Admin Al Hydroxide/Mg Hydroxide 30 0 ml 08/22/19 23:35 08/23/19 00:05 ml/ Lidocaine HCl 15 ml PO 08/22/19 23:36 45 ml ONETIME ONE Administration Ondansetron HCl 4 mg 08/22/19 23:34 08/22/19 23:43 Zofran Odt PO 08/22/19 23:35 4 mg ONETIME ONE Administration Sucralfate 1 gm 08/22/19 23:35 08/23/19 00:39 Carafate PO 08/22/19 23:36 1 gm ONETIME ONE Administration - Re-Assessments/Exams Free Text/Narrative Re-Assessment/Exam: 08/23/19 00:52 Patient is doing much better he was given a Zofran shortly after this he was given a GI cocktail and this got him better than 50% improvement this was followed up with Carafate which further improved it. His laboratory evaluation is normal troponin is normal EKG is nonacute. We will discharge him at this time have him increase his omeprazole from every other day to every day and start him on 6 days of Carafate. And then maybe try the Carafate twice daily thereafter Departure - Departure Time of Disposition: 00:56 Disposition: Home, Self-Care 01 Clinical Impression: Gastroesophageal reflux disease with hiatal hernia - Discharge Information Prescriptions: Sucralfate [Carafate] 1 gm PO ASDIRECTED #90 tablet Referrals: PCP,Not In Area [Primary Care Provider] - Forms: ED Department Discharge Additional Instructions: Return to the emergency room with any questions problems or worsening symptoms. Take the medications as directed, increase the omeprazole to daily from every other day and take the Carafate as we discussed and as directed Sepsis Event Note - Evaluation Sepsis Screening Result: No Definite Risk - Focused Exam Vital Signs: Vital Signs Temp Pulse Resp BP Pulse Ox 08/22/19 22:49 36.1 C 94 16 143/94 H 99 Date Exam was Performed: 08/23/19 Time Exam was Performed: 00:52 - My Orders Last 24 Hours: My Active Orders 08/22/19 23:45 EKG Documentation Completion [RC] STAT - Assessment/Plan Last 24 Hours: My Active Orders 08/22/19 23:45 EKG Documentation Completion [RC] STAT
[2019-08-22] MEDS ORDERED: Ondansetron 4 MG Tab.DIS PO ONE (23:34)
[2019-08-22] MEDS ORDERED: Alum Hydrox/Mag Hydrox/Simeth 30 ML, Lidocaine 2% 15 ML PO ONE ×2 (23:35)
[2019-08-22] MEDS ORDERED: Sucralfate Suspension 1 GM/10 ML Cup PO ONE (23:35)
== END 2019-08-23 01:06 | disposition home or self-care (01) ==
LOC: JD.ED 22:43
DX: K21.9 Gastro-esophageal reflux disease without esophagitis (principal); E66.9 Obesity, unspecified; Z88.8 Allergy status to other drugs, medicaments and biological substances; Z68.31 Body mass index [BMI] 31.0-31.9, adult
CPT/HCPCS: 36415; 80053; 83690; 84484; 85007; 85027; 93005; 99283; A9270; 93010

== ENCOUNTER 2019-09-07 18:15 | Emergency (ER) | payer OTHER ==
[2019-09-07] MEDS ORDERED: Alum Hydrox/Mag Hydrox/Simeth 30 ML, Lidocaine 2% 15 ML PO ONE ×2 (18:40)
--- NOTE | 2019-09-07 18:49 | EDM.PDOC ---
ED HPI GENERAL MEDICAL PROBLEM - General Chief Complaint: Chest Pain Stated Complaint: GERA/CHEST PAIN Time Seen by Provider: 09/07/19 18:34 Source of Information: Reports: Patient History Limitations: Reports: No Limitations - History of Present Illness INITIAL COMMENTS - FREE TEXT/NARRATIVE: Patient's unfortunate 29-year-old male who presents emergency Department today with complaint of gas pain and chest. She reports that he has had sharp pains to his left chest for the past 2 hours. He reports he ate approximately 4:00 and then went to his physical therapy 45 he started having sharp stabbing pains left chest and "burping". He reports this is similar to previous episodes worse and diagnosed with gastritis and reports last time they gave him a GI cocktail and a prescription for sucralfate which helped his symptoms. This time simply did not help so he came back to the emergency department for reevaluation. Pain is worse with palpation of the epigastrium, patient reports he had a EGD done 6 months ago at which time he was found to be "negative" he reports that the sucralfate and on. As all generally help his pain however this time they did not Chest Pain Score (Numeric/FACES): 1 - Related Data Allergies Allergy/AdvReac Type Severity Reaction Status Date / Time pravastatin Allergy Rash Verified 09/07/19 18:32 Home Meds: Home Meds Omeprazole 20 mg PO BID 09/07/19 [History] Sucralfate 1 gm PO BID 09/07/19 [History] Past Medical History - Past Health History Medical/Surgical History: Denies Medical/Surgical History HEENT History: Reports: None Cardiovascular History: Reports: None Respiratory History: Reports: None Gastrointestinal History: Reports: Gastritis, GERD, Other (See Below) Other Gastrointestinal History: hiatal hernia Genitourinary History: Reports: Renal Calculus Musculoskeletal History: Reports: Back Pain, Chronic Neurological History: Reports: None Psychiatric History: Reports: None Endocrine/Metabolic History: Reports: Obesity/BMI 30+ Hematologic History: Reports: None Immunologic History: Reports: None Oncologic (Cancer) History: Reports: None Dermatologic History: Reports: None - Infectious Disease History Infectious Disease History: Reports: None - Past Surgical History Head Surgeries/Procedures: Reports: None GI Surgical History: Reports: Hernia Repair/Other Social & Family History - Family History Family Medical History: Noncontributory - Tobacco Use Smoking Status *Q: Former Smoker Used Tobacco, but Quit: Yes Month/Year Tobacco Last Used: 2009 Second Hand Smoke Exposure: No - Caffeine Use Caffeine Use: Reports: None - Recreational Drug Use Recreational Drug Use: No - Living Situation & Occupation Living situation: Reports: Occupation: Unemployed ED ROS GENERAL - Review of Systems Review Of Systems: See Below Constitutional: Denies: Fever, Chills Cardiovascular: Reports: Chest Pain GI/Abdominal: Reports: Abdominal Pain, Nausea, Vomiting ED EXAM, GENERAL - Physical Exam Exam: See Below Exam Limited By: No Limitations General Appearance: Alert, WD/WN, Mild Distress Ears: Normal External Exam, Normal Canal, Hearing Grossly Normal, Normal TMs Throat/Mouth: Normal Inspection, Normal Lips, Normal Teeth, Normal Gums, Normal Oropharynx, Normal Voice, No Airway Compromise Head: Atraumatic, Normocephalic Neck: Normal Inspection, Supple, Non-Tender, Full Range of Motion Respiratory/Chest: No Respiratory Distress, Lungs Clear, Normal Breath Sounds, No Accessory Muscle Use, Chest Non-Tender Cardiovascular: Normal Peripheral Pulses, Regular Rate, Rhythm, No Edema, No Gallop, No JVD, No Murmur, No Rub GI/Abdominal: Normal Bowel Sounds, Soft, Tender (Mild epigastric tenderness) Back Exam: Normal Inspection, Full Range of Motion, NT Extremities: Normal Inspection, Normal Range of Motion, Non-Tender, Normal Capillary Refill, No Pedal Edema Neurological: Alert Skin Exam: Warm, Dry Course - Vital Signs Last Recorded V/S: Last Vital Signs Temp 97.0 F 09/07/19 18:29 Pulse 102 H 09/07/19 18:29 Resp 19 09/07/19 18:29 BP 142/93 H 09/07/19 18:29 Pulse Ox 99 09/07/19 18:29 - Orders/Labs/Meds Meds: Medications Discontinued Medications Generic Name Dose Route Start Last Admin Trade Name Freq PRN Reason Stop Dose Admin Al Hydroxide/Mg Hydroxide 30 0 ml 09/07/19 18:40 09/07/19 18:51 ml/ Lidocaine HCl 15 ml PO 09/07/19 18:41 45 ml ONETIME ONE Administration - Re-Assessments/Exams Free Text/Narrative Re-Assessment/Exam: 09/07/19 19:37 It is resolved, I do not suspect any cardiac involvement at all due to this being similar to his previous episodes of reflux and pleuritic-type pain we will treat as such and have patient follow up outpatient with his PCP Departure - Departure Time of Disposition: 19:38 Disposition: Home, Self-Care 01 Condition: Good Clinical Impression: GERD (gastroesophageal reflux disease) Qualifiers: Esophagitis presence: without esophagitis Qualified Code(s): K21.9 - Gastro- esophageal reflux disease without esophagitis Instructions: Gastroesophageal Reflux Disease, Adult, [id number] Referrals: Fay Medley PHARMACY STUDENT [Ordering Only Provider] - Forms: ED Department Discharge Additional Instructions: Home, rest, adequate fluids, Tums as needed for pain, return as needed for worsening condition Sepsis Event Note - Evaluation Sepsis Screening Result: No Definite Risk - Focused Exam Vital Signs: Vital Signs Temp Pulse Resp BP Pulse Ox 09/07/19 18:29 97.0 F 102 H 19 142/93 H 99 Date Exam was Performed: 09/07/19 Time Exam was Performed: 19:37
== END 2019-09-07 19:45 | disposition home or self-care (01) ==
LOC: JD.ED 18:15
DX: K21.9 Gastro-esophageal reflux disease without esophagitis (principal); Z87.891 Personal history of nicotine dependence; E66.9 Obesity, unspecified; Z79.899 Other long term (current) drug therapy; Z88.8 Allergy status to other drugs, medicaments and biological substances; Z68.33 Body mass index [BMI] 33.0-33.9, adult
CPT/HCPCS: 99284; A9270; 99282

== ENCOUNTER 2020-06-15 23:12 | Emergency (ER) | payer OTHER ==
--- NOTE | 2020-06-15 23:27 | EDM.PDOC ---
ED HPI GENERAL MEDICAL PROBLEM - General Chief Complaint: Chest Pain Stated Complaint: CHEST PRESSURE AND GAS Time Seen by Provider: 06/15/20 23:25 Source of Information: Reports: Patient, RN Notes Reviewed - History of Present Illness INITIAL COMMENTS - FREE TEXT/NARRATIVE: 30 yr old male comes in with chest pressure, increased gas, burping and belching. Has had this off and on for about a yr, was doing better and than much worse the past few days. Moderately ill with covid about 4 wks ago, those sx all resolved a couple of wks ago. Chest Pain Score (Numeric/FACES): 5 - Related Data Allergies Allergy/AdvReac Type Severity Reaction Status Date / Time pravastatin Allergy Severe Rash Verified 06/15/20 23:24 Home Meds: Home Meds Cholecalciferol (Vitamin D3) [Vitamin D3] 0 mg PO DAILY 06/15/20 [History] Multivit-Minerals/FA/Lycopene [One Daily [employer] Tablet] 1 each PO DAILY 06/15/20 [History] Non-Formulary Medication [NF Drug] 1,500 mg PO DAILY 06/15/20 [History] Non-Formulary Medication [NF Drug] 10 ml PO DAILY 06/15/20 [History] Nortriptyline HCl [Pamelor] 50 mg PO BEDTIME PRN 06/15/20 [History] [place]-3/DHA/Epa/Fish Oil [Fish Oil 1,400 MG Softgel] 1 each PO DAILY 06/15/20 [History] Omeprazole 40 mg PO DAILY #20 capsule.dr 06/15/20 [Rx] Past Medical History - Past Health History Medical/Surgical History: Denies Medical/Surgical History HEENT History: Reports: None Cardiovascular History: Reports: None Respiratory History: Reports: None Gastrointestinal History: Reports: Gastritis, GERD, Other (See Below) Other Gastrointestinal History: hiatal hernia Genitourinary History: Reports: Renal Calculus Musculoskeletal History: Reports: Back Pain, Chronic Neurological History: Reports: None Psychiatric History: Reports: None Endocrine/Metabolic History: Reports: Obesity/BMI 30+ Hematologic History: Reports: None Immunologic History: Reports: None Oncologic (Cancer) History: Reports: None Dermatologic History: Reports: None - Infectious Disease History Infectious Disease History: Reports: None - Past Surgical History Head Surgeries/Procedures: Reports: None GI Surgical History: Reports: Hernia Repair/Other Social & Family History - Family History Family Medical History: Noncontributory - Tobacco Use Tobacco Use Status *Q: Never Tobacco User - Caffeine Use Caffeine Use: Reports: None - Recreational Drug Use Recreational Drug Use: No - Living Situation & Occupation Living situation: Reports: Occupation: Unemployed ED ROS GENERAL - Review of Systems Review Of Systems: See Below Constitutional: Denies: Fever, Chills, Diaphoresis HEENT: Denies: Throat Pain Respiratory: Denies: Shortness of Breath, Cough Cardiovascular: Reports: Chest Pain GI/Abdominal: Denies: Abdominal Pain, Diarrhea, Nausea, Vomiting Musculoskeletal: Denies: Neck Pain, Shoulder Pain, Arm Pain, Back Pain Skin: Reports: No Symptoms Neurological: Reports: No Symptoms ED EXAM, GENERAL - Physical Exam Exam: See Below General Appearance: Alert, Anxious, Other (frequent belching) Eye Exam: Bilateral Eye: PERRL Head: Atraumatic. No: Facial Swelling Neck: Supple Respiratory/Chest: No Respiratory Distress, Lungs Clear Cardiovascular: Regular Rate, Rhythm GI/Abdominal: Soft, Non-Tender. No: Guarding Extremities: Normal Inspection, Normal Range of Motion. No: Pedal Edema, Leg Pain Neurological: Alert, Oriented, No Motor/Sensory Deficits Skin Exam: Warm, Dry, Normal Color #1 Interpretation EKG Date: 06/15/20 Rhythm: NSR [place]: Normal P-Wave: Present QRS: Normal ST-T: Normal Course - Vital Signs Last Recorded V/S: Last Vital Signs Temp 97.8 F 06/15/20 23:21 Pulse 122 H 06/15/20 23:21 Resp 16 06/15/20 23:21 BP 126/95 H 06/15/20 23:21 Pulse Ox 99 06/15/20 23:21 - Orders/Labs/Meds Orders: Active Orders 24 hr Category Date Time Status EKG 12 Lead [EKG Documentation Completion] [RC] ROUTINE Care 06/15/20 23:26 Active Meds: Medications Discontinued Medications Generic Name Dose Route Start Last Admin Trade Name Freq PRN Reason Stop Dose Admin Famotidine 20 mg 06/15/20 23:51 06/15/20 23:59 Pepcid PO 06/15/20 23:52 20 mg ONETIME ONE Administration Departure - Departure Time of Disposition: 23:53 Disposition: Home, Self-Care 01 Condition: Fair Clinical Impression: Atypical chest pain GERD (gastroesophageal reflux disease) Qualifiers: Esophagitis presence: without esophagitis Qualified Code(s): K21.9 - Gastro- esophageal reflux disease without esophagitis Prescriptions: Omeprazole 40 mg PO DAILY #20 capsule.dr Instructions: Food Choices for Gastroesophageal Reflux Disease, Adult, Easy-to- Read, Nonspecific Chest Pain, Adult, Gastroesophageal Reflux Disease, Adult, [id number] Referrals: PCP,Not In Area [Primary Care Provider] - Forms: ED Department Discharge Additional Instructions: Omeprazole 40 mg daily. Prescription has been sent electronically to the clinic pharmacy. Lorazepam 1mg at bedtime for the the few nights to help you sleep and thereafter if needed for severe insomnia. Continue other previously prescribed meds. Follow up [place] clinic in about 1 week for recheck, call for appt. Sepsis Event Note (ED) - Evaluation Sepsis Screening Result: No Definite Risk - Focused Exam Vital Signs: Vital Signs Temp Pulse Resp BP Pulse Ox 06/15/20 23:21 97.8 F 122 H 16 126/95 H 99 - My Orders Last 24 Hours: My Active Orders 06/15/20 23:26 EKG 12 Lead [EKG Documentation Completion] [RC] ROUTINE - Assessment/Plan Last 24 Hours: My Active Orders 06/15/20 23:26 EKG 12 Lead [EKG Documentation Completion] [RC] ROUTINE
[2020-06-15] MEDS ORDERED: Famotidine 20 MG Tab PO ONE (23:51)
== END 2020-06-16 00:15 | disposition home or self-care (01) ==
LOC: JD.ED 23:12
DX: K21.9 Gastro-esophageal reflux disease without esophagitis (principal); E66.9 Obesity, unspecified; Z88.8 Allergy status to other drugs, medicaments and biological substances; Z79.899 Other long term (current) drug therapy
CPT/HCPCS: 93005; 99284; A9270; 93010

== ENCOUNTER 2020-06-26 13:25 | Emergency (ER) | payer OTHER ==
--- NOTE | 2020-06-26 14:56 | EDM.PDOC ---
ED HPI GENERAL MEDICAL PROBLEM - General Chief Complaint: Chest Pain Stated Complaint: CHEST PRESSURE/PAIN Time Seen by Provider: 06/26/20 14:05 Source of Information: Reports: Patient, RN Notes Reviewed - History of Present Illness INITIAL COMMENTS - FREE TEXT/NARRATIVE: 30 yr old male comes in with frequent belching that he has had for about a yr, worse the last 2 months or so and also an ache L chest that just started earlier today. No cough, fever, chills or difficulty breathing. He does get acid reflux with the belching. On various meds for that, so far not much seems to be helping. He was seen in the ED by myself about 10 days ago for similar sx. Has been going to the [place] clinic, has seen a GI specialist at least once in the recent past, has had endoscopy. Chest Pain Score (Numeric/FACES): 6 - Related Data Allergies Allergy/AdvReac Type Severity Reaction Status Date / Time pravastatin Allergy Severe Rash Verified 06/15/20 23:24 Home Meds: Home Meds Cholecalciferol (Vitamin D3) [Vitamin D3] 0 mg PO DAILY 06/15/20 [History] Multivit-Minerals/FA/Lycopene [One Daily [employer] Tablet] 1 each PO DAILY 06/15/20 [History] Non-Formulary Medication [NF Drug] 1,500 mg PO DAILY 06/15/20 [History] Non-Formulary Medication [NF Drug] 10 ml PO DAILY 06/15/20 [History] Nortriptyline HCl [Pamelor] 50 mg PO BEDTIME PRN 06/15/20 [History] [place]-3/DHA/Epa/Fish Oil [Fish Oil 1,400 MG Softgel] 1 each PO DAILY 06/15/20 [History] Omeprazole 40 mg PO DAILY #20 capsule.dr 06/15/20 [Rx] LORazepam [Ativan] 0.5 mg PO BID #10 tablet 06/26/20 [Rx] Past Medical History - Past Health History Medical/Surgical History: Denies Medical/Surgical History HEENT History: Reports: None Cardiovascular History: Reports: None Respiratory History: Reports: None Gastrointestinal History: Reports: Gastritis, GERD, Other (See Below) Other Gastrointestinal History: hiatal hernia Genitourinary History: Reports: Renal Calculus Musculoskeletal History: Reports: Back Pain, Chronic Neurological History: Reports: None Psychiatric History: Reports: None Endocrine/Metabolic History: Reports: Obesity/BMI 30+ Hematologic History: Reports: None Immunologic History: Reports: None Oncologic (Cancer) History: Reports: None Dermatologic History: Reports: None - Infectious Disease History Infectious Disease History: Reports: None - Past Surgical History Head Surgeries/Procedures: Reports: None GI Surgical History: Reports: Hernia Repair/Other Social & Family History - Family History Family Medical History: Noncontributory - Tobacco Use Tobacco Use Status *Q: Never Tobacco User - Caffeine Use Caffeine Use: Reports: None - Living Situation & Occupation Living situation: Reports: Occupation: Unemployed ED ROS GENERAL - Review of Systems Review Of Systems: See Below Constitutional: Denies: Fever, Chills, Diaphoresis HEENT: Denies: Throat Pain Respiratory: Denies: Shortness of Breath, Cough Cardiovascular: Reports: Chest Pain GI/Abdominal: Reports: Abdominal Pain (upper abd discomfort comes and goes), Other (frquent belching) Musculoskeletal: Denies: Shoulder Pain, Arm Pain, Back Pain Skin: Reports: No Symptoms Neurological: Reports: No Symptoms Psychiatric: Reports: Anxiety ED EXAM, GENERAL - Physical Exam Exam: See Below General Appearance: Alert, Anxious, Other (frequent belching) Head: Atraumatic Neck: Supple Respiratory/Chest: No Respiratory Distress, Lungs Clear, Normal Breath Sounds Cardiovascular: Regular Rate, Rhythm GI/Abdominal: Soft, Non-Tender. No: Guarding Extremities: Normal Inspection. No: Pedal Edema, Leg Pain, Redness Neurological: Alert, Oriented, No Motor/Sensory Deficits Skin Exam: Warm, Dry, Normal Color #1 Interpretation EKG Date: 06/26/20 Rhythm: NSR [place]: Normal P-Wave: Present QRS: Normal ST-T: Normal Course - Vital Signs Last Recorded V/S: Last Vital Signs Temp 97.8 F 06/26/20 13:53 Pulse 97 06/26/20 13:53 Resp 16 06/26/20 13:53 BP 138/83 06/26/20 13:53 Pulse Ox 97 06/26/20 13:53 - Re-Assessments/Exams Free Text/Narrative Re-Assessment/Exam: 06/26/20 15:26 EKG does not show acute changes, identical to EKG of about 10 days ago. This is not cardiac. I have explained to patient to be belching this much he is swallowing air. It is not coming from anywhere else, impossible to produce that much gas anywhere in his GI systems, belching many times per minute during hx and exam. Have encouraged him to focus on trying not to swallow air, get his mind on other activities. Ativan 0.5 mg bid for 5 days only to help him relax, try break the cycle. Departure - Departure Time of Disposition: 14:53 Disposition: Home, Self-Care 01 Condition: Fair Clinical Impression: Non-cardiac chest pain GERD (gastroesophageal reflux disease) Qualifiers: Esophagitis bleeding: without hemorrhage Prescriptions: LORazepam [Ativan] 0.5 mg PO BID #10 tablet Instructions: Nonspecific Chest Pain, Adult, [id number] Referrals: Cindy Meza MD [Primary Care Provider] - Forms: ED Department Discharge Additional Instructions: Continue current meds. The gas you are burping is air that you are subconsciously swallowing. Try hard to stop swallowing air. Once you can stop doing that your belching difficulty is going to go away. Ativan 0.5 mg twice daily for stress and anxiety will help with this. Prescription has been sent electronically to [facility] open until 4 PM this afternoon. Follow up clinic as needed. Sepsis Event Note (ED) - Evaluation Sepsis Screening Result: No Definite Risk - Focused Exam Vital Signs: Vital Signs Temp Pulse Resp BP Pulse Ox 06/26/20 13:53 97.8 F 97 16 138/83 97
== END 2020-06-26 15:05 | disposition home or self-care (01) ==
LOC: JD.ED 13:25
DX: K21.9 Gastro-esophageal reflux disease without esophagitis (principal); E66.9 Obesity, unspecified; Z68.31 Body mass index [BMI] 31.0-31.9, adult; Z88.8 Allergy status to other drugs, medicaments and biological substances; Z79.899 Other long term (current) drug therapy
CPT/HCPCS: 93005; 93010; 99283; 99284-25